=== PATIENT | male | born 1995 | race Hispanic/Latino ===

== ENCOUNTER 2024-02-19 11:54 | Emergency (ER) | payer BC ==
[~2024-02-19] VITALS: Ht 157.5 cm; Wt 85.3 kg
[2024-02-19 12:11] VITALS: BP 129/79; PULSE 60; RESP 18; TEMP 98.1; O2SAT 98
[2024-02-19] MEDS ORDERED: CEPH500T PO (13:34)
== END 2024-02-19 13:41 | disposition home or self-care (01) ==
LOC: EDH 11:54
DX: S61.012A Laceration without foreign body of left thumb without damage to nail, initial encounter (principal); W27.0XXA Contact with workbench tool, initial encounter; Y93.89 Activity, other specified; Y92.89 Other specified places as the place of occurrence of the external cause; Y99.8 Other external cause status
CPT/HCPCS: 73140

== ENCOUNTER 2024-02-24 09:14 | Emergency (ER) | payer BC ==
[~2024-02-24] VITALS: Ht 157.5 cm; Wt 83.9 kg
[~2024-02-24 09:14] MED LIST: CEPH500T PO
[2024-02-24 09:37] LABS: RAPID GROUP A STREP negative (NEGATIVE)
[2024-02-24 09:47] LABS: COVID19 (SARS ANTIGEN RAPID) PRESUMPTIVE NEGATIVE (NEGATIVE); INFLUENZA TYPE A Negative For Type A (NEGATIVE); INFLUENZA TYPE B Negative For Type B (NEGATIVE)
[2024-02-24] MEDS: 0.9%NACL 1000ML 1,000 ML IV ONE (09:56)
[2024-02-24 11:10] LABS: BASOPHILS # (AUTO) 0.02 K/uL (0.00-0.20); BASOPHILS % (AUTO) 0.1 % (0.0-5.0); EOSINOPHILS # (AUTO) 0.01 K/uL (0.00-0.70); EOSINOPHILS % (AUTO) 0.1 % (0.0-8.0); HEMATOCRIT 42.2 % (42-54); IMMATURE GRANULOCYTE ABSOLUTE 0.07 K/uL (0-1); LYMPHOCYTES # (AUTO) 0.8 K/uL (1.0-4.8); LYMPHOCYTES % (AUTO) 5.8 % (21.0-51.0); MEAN CORPUSCULAR HEMOGLOBIN 28.4 pg (27.0-33.0); MEAN CORPUSCULAR HGB CONC 33.9 g/dL (32.0-36.0); MEAN CORPUSCULAR VOLUME 83.9 fL (79-99); MONOCYTES # (AUTO) 0.7 K/uL (0.1-1.0); MONOCYTES % (AUTO) 4.9 % (3.0-13.0); NEUTROPHILS # (AUTO) 12.6 K/uL (1.8-7.7); NEUTROPHILS % (AUTO) 88.6 % (40.0-77.0); PLATELET COUNT (AUTO) 238 K/uL (130-400); RED BLOOD CELL COUNT(AUTO) 5.03 MIL/uL (4.50-6.20); RED CELL DISTRIBUTION WIDTH 12.7 % (11.0-15.5); WHITE BLOOD COUNT (AUTO) 14.2 K/uL (4.8-10.8)
[2024-02-24 11:17] LABS: CREATININE 0.8 mg/dL (0.5-1.3); POTASSIUM 3.6 mmol/L (3.5-5.1)
[2024-02-24 11:23] VITALS: BP 138/74; PULSE 92; RESP 18; TEMP 98.6; O2SAT 99
[2024-02-24] MEDS: acetaMINOPHEN 500 MG TABLET PO ONE (11:30)
[2024-02-24] MEDS ORDERED: AMOX1TAB16 PO (11:41)
[2024-02-24] MEDS ORDERED: AZIT250T9 PO (11:41)
[2024-02-24 11:59] LABS: APPEARANCE,URINE CLEAR (CLEAR); BILIRUBIN,URINE NEGATIVE (NEGATIVE); COLOR,URINE LIGHT-YELLOW (YELLOW); GLUCOSE, URINE (UA) NEGATIVE (NEGATIVE); KETONES,URINE NEGATIVE (NEGATIVE); LEUKOCYTE ESTERASE ,URINE NEGATIVE Leu/uL (NEGATIVE); NITRATE,URINE NEGATIVE (NEGATIVE); OCCULT BLOOD,URINE NEGATIVE (NEGATIVE); PH,URINE 5.5 (5.0-8.0); PROTEIN,URINE NEGATIVE (NEGATIVE); UROBILINOGEN,URINE 0.2 mg/dL (0.2-1.0)
[2024-02-24 12:11] LABS: ADD UA MICROSCOPIC NO
== END 2024-02-24 12:22 | disposition home or self-care (01) ==
LOC: EDH 09:14
DX: J18.9 Pneumonia, unspecified organism (principal); Z20.822 Contact with and (suspected) exposure to COVID-19
CPT/HCPCS: 99283; 96360; 71045; 96361; 87426; 80048; 85025; 87880; 87804 ×2; 81003; 36415; J7030